=== PATIENT | male | born 1980 | race Two or more races ===

== ENCOUNTER 2017-03-12 19:31 | Emergency (ER) | payer OTHER ==
[2017-03-12] MEDS ORDERED: Lidocaine 2% EPI 1:200000 MPF* 20 ML VIAL INJ ONE (21:08)
[2017-03-12] MEDS ORDERED: Lidocaine 2% W/EPI 1:100,000* 20 ML MDV ONE (21:12)
[2017-03-12] MEDS ORDERED: Cephalexin CAP* 500 MG PO ONE (21:36)
[2017-03-12] MEDS ORDERED: Ibuprofen TAB* 400 MG PO ONE (21:37)
--- NOTE | 2017-03-12 21:48 | UC ---
Skin Complaint HPI - HPI Summary HPI Summary: Pt presents with c/o of tender, erythematous, abscess left upper upper arm medial aspect. - History of Current Complaint Chief Complaint: UCSkin Time Seen by Provider: 03/12/17 20:45 Stated Complaint: LFT ARM SKIN COMPLAINT Hx Obtained From: Patient Onset/Duration: Gradual Onset, Lasting Days, Still Present, Worse Since - since onset Skin Exposure Onset/Duration: Days Ago Timing: Constant Onset Severity: Mild Current Severity: Moderate Pain Intensity: 7 Location: Discrete Character: Swelling, Pain, Redness, Painful Aggravating Factor(s): Touch Alleviating Factor(s): Nothing Associated Signs & Symptoms: Positive: Tenderness - Allergy/Home Medications Allergies/Adverse Reactions: Allergies Allergy/AdvReac Type Severity Reaction Status Date / Time oxycodone Allergy Dizziness Verified 03/12/17 20:46 Home Medications: Home Medications Finasteride (ALOPECIA) (NF) [Propecia (NF)] 1 tab DAILY 03/12/17 [History Confirmed 03/12/17] Tenofovir/Emtricitabine(*) [Truvada*] 1 tab DAILY 03/12/17 [History Confirmed ] Review of Systems Constitutional: Negative Skin: Other - abscess Eyes: Negative ENT: Negative Respiratory: Negative Cardiovascular: Negative Gastrointestinal: Negative Genitourinary: Negative Motor: Decreased ROM - left ahouler, upper arm secondary to pain Neurovascular: Negative Musculoskeletal: Decreased ROM - left shoulder secondary to pain Neurological: Negative Psychological: Negative Is Patient Immunocompromised?: No All Other Systems Reviewed And Are Negative: Yes PMH/Surg Hx/FS Hx/Imm Hx Previously Healthy: Yes GI/ History: Other - hepatitis Other GI/ History: hepatitis - Surgical History Surgical History: None - Family History Known Family History: Positive: Cardiac Disease - Social History Occupation: Unemployed Lives: With Family Alcohol Use: None Substance Use Type: None Smoking Status (MU): Current Every Day Smoker Type: Cigarettes Amount Used/How Often: 5-10 CIGS/DAYS Physical Exam Triage Information Reviewed: Yes Appearance: Pain Distress - mild Vital Signs: Initial Vital Signs Temp 98.4 F 03/12/17 20:47 Pulse 72 03/12/17 20:47 Resp 16 03/12/17 20:47 BP 128/78 03/12/17 20:47 Pulse Ox 99 03/12/17 20:47 Vital Signs Reviewed: Yes ENT Exam: Normal Neck exam: Normal Respiratory Exam: Normal Musculoskeletal: Positive: ROM Limited @ - left upper arm, shoulder secondary to abscess Neurological Exam: Normal Psychological Exam: Normal Skin Exam: Other - flucuant mass ~ 3cm diameter, erythematous, tender Course/Dx - Course Course Of Treatment: incision and drainage to left upper arm medial aspect pt tolerated well, small amount of purulent drainage - Differential Diagnoses - Skin Complaint Differential Diagnoses: Abscess - Diagnoses Provider Diagnoses: abscess left upper arm Procedures - Incision and Drainage Site: left upper arm medial aspect Anesthesia: Local Instrument(s): Scalpel - 11 blade Discharge - Discharge Plan Condition: Stable Disposition: HOME Prescriptions: Cephalexin CAP* [Keflex 500 CAP*] 500 mg PO Q8H #30 cap Patient Education Materials: Abscess (ED), Incision and Drainage (ED) Referrals: Mateo BERGERON,Raymundo Kiran [Primary Care Provider] - If Needed Additional Instructions: Please follow up with your PCP or return to clinic as needed. Please monitor for signs of worsening infection that include but are not limited to: increased redness, tenderness, fever, chills, and drainage. If your symptoms worsen please seek care at the closest Emergency department
== END 2017-03-12 22:07 | disposition home or self-care (01) ==
LOC: UCCORT 19:31
DX: L02.414 Cutaneous abscess of left upper limb (principal); B95.61 Methicillin susceptible Staphylococcus aureus infection as the cause of diseases classified elsewhere; K75.9 Inflammatory liver disease, unspecified; Z88.5 Allergy status to narcotic agent; F17.210 Nicotine dependence, cigarettes, uncomplicated
CPT/HCPCS: 10060; 87070; 87077; 87186; 87205; 87640; 87641; 99202; A9270-GY; G0463

== ENCOUNTER 2017-05-24 08:35 | Emergency (ER) | payer BC, OTHER ==
--- NOTE | 2017-05-24 09:21 | UC ---
Skin Complaint HPI - HPI Summary HPI Summary: Pt presents with c/o of "pimple" in left axilla. Pt has history of axillary abscess. Pt has refused incision and drainage. - History of Current Complaint Time Seen by Provider: 05/24/17 08:54 Stated Complaint: SKIN COMPLAINT Hx Obtained From: Patient Onset/Duration: Gradual Onset, Lasting Days Skin Exposure Onset/Duration: Days Ago Timing: Constant Onset Severity: Mild Current Severity: Moderate Location: Discrete - left axilla Character: Swelling, Redness, Raised, Painful Aggravating Factor(s): Touch Alleviating Factor(s): Nothing Associated Signs & Symptoms: Positive: Tenderness - Allergy/Home Medications Allergies/Adverse Reactions: Allergies Allergy/AdvReac Type Severity Reaction Status Date / Time oxycodone Allergy Dizziness Verified 05/24/17 09:25 Review of Systems Constitutional: Negative Skin: Other - abscess Eyes: Negative ENT: Negative Respiratory: Negative Cardiovascular: Negative Gastrointestinal: Negative Genitourinary: Negative Motor: Negative Neurovascular: Negative Musculoskeletal: Negative Neurological: Negative Psychological: Negative Is Patient Immunocompromised?: No All Other Systems Reviewed And Are Negative: Yes PMH/Surg Hx/FS Hx/Imm Hx Previously Healthy: Yes - Surgical History Surgical History: None - Family History Known Family History: Positive: Cardiac Disease - Social History Occupation: Employed Full-time Lives: With Family Alcohol Use: None Substance Use Type: None Smoking Status (MU): Current Every Day Smoker Type: Cigarettes Amount Used/How Often: 5-10 CIGS/DAYS Have You Smoked in the Last Year: Yes Household Exposure Type: Cigarettes Physical Exam Triage Information Reviewed: Yes Appearance: Well-Appearing Vital Signs Reviewed: Yes Eye Exam: Normal ENT: Positive: Hearing grossly normal Neck exam: Normal Respiratory Exam: Normal Musculoskeletal Exam: Normal Neurological Exam: Normal Psychological Exam: Normal Skin Exam: Other - multiple eyrthematous areas of mild swelling with flucant mass. each 1cm in diameter. Course/Dx - Course Course Of Treatment: I discussed incision and drainage with the pt and pt has refused. - Differential Diagnoses - Skin Complaint Differential Diagnoses: Abscess - Diagnoses Provider Diagnoses: 4 abscesses left axilla Discharge - Sign-Out/Discharge Documenting (check all that apply): Discharge - Discharge Plan Condition: Stable Disposition: HOME Prescriptions: Mupirocin NASAL OINT (NF) [Bactroban NASAL OINT (NF)] 1 applic NASAL BEDTIME #1 nasal.oint Sulfamethox/Trimethoprim DS* [Bactrim DS 800/160 TAB*] 1 tab PO Q12H #20 tab Patient Education Materials: Abscess (ED), Warm Compress or Soak (ED) Referrals: Mateo BERGERON,Raymundo Kiran [Primary Care Provider] - If Needed Additional Instructions: Please follow up with your PCP or return to clinic as needed. - Billing Disposition and Condition Condition: STABLE Disposition: HOME
[2017-05-24 09:32] VITALS: BP 133/76
== END 2017-05-24 09:38 | disposition home or self-care (01) ==
LOC: UCCORT 08:35
DX: L02.412 Cutaneous abscess of left axilla (principal); F17.210 Nicotine dependence, cigarettes, uncomplicated; Z88.5 Allergy status to narcotic agent
CPT/HCPCS: 99212; G0463

== ENCOUNTER 2017-07-19 14:16 | Emergency (ER) | payer OTHER ==
[2017-07-19 14:50] VITALS: BP 113/72
--- NOTE | 2017-07-19 15:18 | UC ---
FLU HPI - HPI Summary HPI Summary: Pt c/o sudden onset of fever and chills. Pt is not eating during the day due to muslim reasons and is not taking antipyretic until after dark. Pt states that he has generalized body aches and fatigue. He is also concerned about "lump" that has formed in his left upper anterior thigh. Pt reports that he has been practicing soccer more with his left leg and that his left leg has been "sore" since practicing. - History of Current Complaint Chief Complaint: UCGeneralIllness Stated Complaint: FEVER/CHILLS/PERSONAL Time Seen by Provider: 07/19/17 14:46 Hx Obtained From: Patient Onset/Duration: Sudden Onset, Lasting Days, Still Present Severity Currently: Mild Severity Initially: Mild Pain Intensity: 3 Associated Signs & Symptoms: Positive: Fever, Myalgia - Risk Factors Influenza Risk Factors: Negative - Allergy/Home Medications Allergies/Adverse Reactions: Allergies Allergy/AdvReac Type Severity Reaction Status Date / Time oxycodone Allergy Dizziness Verified 07/19/17 14:48 Home Medications: Home Medications Naproxen Sodium [Aleve] 220 mg PO Q6H PRN 07/19/17 [History Confirmed 07/19/17] PMH/Surg Hx/FS Hx/Imm Hx Previously Healthy: Yes - Surgical History Surgical History: None Surgery Procedure, Year, and Place: Sphyincterotomy - Family History Known Family History: Positive: Cardiac Disease - Social History Occupation: Works From/At Home Lives: With Family Alcohol Use: None Substance Use Type: None Smoking Status (MU): Light Every Day Tobacco Smoker Type: Cigarettes Amount Used/How Often: 5-10 CIGS/DAYS Have You Smoked in the Last Year: Yes Household Exposure Type: Cigarettes Review of Systems Constitutional: Fever Skin: Negative Eyes: Negative ENT: Negative Respiratory: Negative Cardiovascular: Negative Gastrointestinal: Negative Genitourinary: Negative Motor: Negative Neurovascular: Negative Musculoskeletal: Myalgia - left upper thigh, Other: - non tender irregular shaped non circumscribed "lump" left upper anterior thigh, Neurological: Negative Psychological: Negative Is Patient Immunocompromised?: No All Other Systems Reviewed And Are Negative: Yes Physical Exam Triage Information Reviewed: Yes Appearance: Thin Vital Signs: Initial Vital Signs Temp 98.7 F 07/19/17 14:39 Pulse 83 07/19/17 14:39 Resp 14 07/19/17 14:39 BP 113/72 07/19/17 14:39 Pulse Ox 99 07/19/17 14:39 Vital Signs Reviewed: Yes Eye Exam: Normal ENT Exam: Normal Dental Exam: Normal Neck exam: Normal Respiratory Exam: Normal Cardiovascular Exam: Normal Musculoskeletal Exam: Other - non tender irregular shaped non circumscribed "lump" left upper anterior thigh, ~ 3 cm X 1 cm Neurological Exam: Normal Psychological Exam: Normal Skin Exam: Normal Diagnostics - Laboratory Diagnostic Studies Completed/Ordered: Rapid flu: negative Flu Course/Dx - Differential Dx/Diagnosis Differential Diagnosis/HQI/PQRI: Influenza Provider Diagnoses: viral syndrome. fever of unknown origin Discharge - Sign-Out/Discharge Documenting (check all that apply): Discharge/Admit/Transfer - Discharge Plan Condition: Stable Disposition: HOME Patient Education Materials: Fever in Adults (ED) Referrals: Mateo BERGERON,Raymundo Kiran [Primary Care Provider] - If Needed - Billing Disposition and Condition Condition: STABLE Disposition: Home
== END 2017-07-19 15:47 | disposition home or self-care (01) ==
LOC: UCCORT 14:16
DX: B34.9 Viral infection, unspecified (principal); R50.9 Fever, unspecified; R22.42 Localized swelling, mass and lump, left lower limb; Z88.5 Allergy status to narcotic agent; F17.210 Nicotine dependence, cigarettes, uncomplicated
CPT/HCPCS: 87502; 99211; G0463